=== PATIENT | male | born 1970 ===

== ENCOUNTER 2019-03-24 04:50 | Day surgery (SDC) | payer OTHER ==
[2019-03-24] MEDS ORDERED: PERCOCET 5-3251 EACH PO (10:01)
[2019-03-24] MEDS ORDERED: NEURONTIN300 MG PO (10:02)
[2019-03-24] MEDS ORDERED: COLACE100 MG PO (10:02)
== END 2019-03-24 11:05 | disposition home or self-care (01) ==
LOC: CIR.AMB 04:50 → EDBD 07:00 → CIR.AMB 11:05
DX: K40.90 Unilateral inguinal hernia, without obstruction or gangrene, not specified as recurrent (principal)